=== PATIENT | female | born 1975 | race Caucasian/White ===

== ENCOUNTER → 2021-02-17 | Outpatient (CLI) | payer OTHER ==
[2021-02-17 14:21] LABS: BUN 10 mg/dl (7-24); CHLORIDE 107 mmol/L (98-107); CREATININE 0.81 mg/dL (0.55-1.02); FREE T4 0.96 ng/dl (0.76-1.46); IRON 31 ug/dL (50-170); SODIUM 139 mmol/L (136-145); TOTAL IRON BINDING CAPACITY 432 ug/dl (250-450)
[2021-02-17 14:43] LABS: TESTOSTERONE, TOTAL 30 ng/dL (14-73)
[2021-02-19 05:07] LABS: THYROID PEROXIDASE (TPO) AB <8 IU/mL (0-34)
[2021-02-19 15:08] LABS: THYROGLOBULIN ANTIBODY <1.0 IU/mL (0.0-0.9)
== END | disposition home or self-care (01) ==
LOC: LAB 13:39
PROVIDERS: ATTEND Internal Medicine
DX: D64.9 Anemia, unspecified (principal); R00.2 Palpitations; E66.9 Obesity, unspecified; E34.9 Endocrine disorder, unspecified